=== PATIENT | female | born 1960 | race Caucasian/White ===

== ENCOUNTER 2017-11-04 06:18 | Emergency (ER) ==
[2017-11-04] MEDS ORDERED: LASIX IVP STA ×2 (06:27→06:56)
[2017-11-04 06:35] VITALS: BP 227/82; TEMP 98.8; BMI 44.3
[2017-11-04 06:49] LABS: BASOPHILS # (AUTO) 0.1 K/uL (0-0.2); BASOPHILS % (AUTO) 0.6 % (0.0-3.0); EOSINOPHILS # (AUTO) 0.5 K/ul (0.0-0.7); EOSINOPHILS % (AUTO) 4.6 % (0.0-7.0); HEMATOCRIT 23.2 % (37.0-47.0); HEMOGLOBIN 7.8 g/dl (12.0-16.0); IMMATURE GRANULOCYTE % (AUTO) 0.7 % (0.0-5.0); LYMPHOCYTES # (AUTO) 1.5 K/uL (0.60-3.4); LYMPHOCYTES % (AUTO) 14.9 (10.0-50.0); MEAN CORPUSCULAR HEMOGLOBIN 30.4 pg (27.0-31.0); MEAN CORPUSCULAR HGB CONC 33.6 (31.8-35.4); MEAN CORPUSCULAR VOLUME 90.3 fl (81.0-99.0); MONOCYTES # (AUTO) 0.8 K/uL (0.4-2.0); MONOCYTES % (AUTO) 7.9 (0-10); NEUTROPHILS # (AUTO) 7.1 K/ul (2.0-6.9); NEUTROPHILS % (AUTO) 71.3; PLATELET COUNT 239 10^3/uL (140-440); RED BLOOD COUNT 2.57 10^6/ul (4.20-5.40)
--- NOTE | 2017-11-04 06:51 | ED.PDOC ---
General Stated Complaint: yobani been sob for a few weeks but worse last night Time Seen by Physician: 06:30 Mode of Arrival: Ambulance Information Source: Patient, Family, EMT Exam Limitations: No limitations Nursing and Triage Documentation Reviewed and Agree: Yes <HEATHER ADAMS - Last Filed: 11/04/17 07:04> <DALIA FOSTER - Last Filed: 11/04/17 08:39> ED Provider: Dr. DALIA FOSTER Chief Complaint: Shortness of Air Primary Care Provider: HEATHER SOTOMAYOR Respiratory Complaint Exam - Shortness of Air Complaint/Exam Onset/Duration: several weeks Symptoms Are: Still present Timing: Intermittent Initial Severity: Mild Current Severity: Moderate Character: Reports: Dyspnea at rest, Dyspnea on exertion Aggravating: Reports: Recumbent position Alleviating: Reports: Oxygen Associated Signs and Symptoms: Reports: Calf pain, Calf swelling, Edema, Labored breathing. Denies: Cough, Wheezing, Chest pain with cough, Chest pain, Fever, Chills, Diaphoresis, Nasal congestion, Dizziness, Rapid breathing, Decreased intake History of Healthcare-Acquired Pneumonia: No Pulmonary Embolism Risk Factors: Reports: Bedrest Cardiac Risk Factors: Reports: Elevated lipids, Diabetes, Hypertension Tuberculosis Risk Factors: Reports: Diabetes Home Oxygen Use: No Recent Stress Test: No Recent Echo/LV Function: No Respiratory Distress: Mild Stridor Present: No Tracheal Deviation: No Subcutaneous Emphysema: No Accessory Muscle Use: No Retractions: Not Present Diminished Breath Sounds: Yes Prolonged Expiratory Phase: No Unable to Speak Full Sentences: No Fatigue: Yes Leg Swelling: Yes Bassam's Sign Present: No Grunting Respirations: No Kussmaul Respirations: No Differential Diagnoses: CHF, Pulmonary Edema, Pneumonia, Pulmonary Embolism Quality Indicator For Non-Traumatic Chest Pain/Syncope: EKG Performed <HEATHER ADAMS - Last Filed: 11/04/17 07:04> Review of Systems - Review Of Systems Constitutional: Reports: No symptoms Eyes: Reports: No symptoms Ears, Nose, Mouth, Throat: Reports: No symptoms Respiratory: Reports: Short of air Cardiac: Reports: No symptoms, Edema GI: Reports: No symptoms : Reports: No symptoms Musculoskeletal: Reports: No symptoms Skin: Reports: No symptoms Neurological: Reports: No symptoms Endocrine: Reports: No symptoms Hematologic/Lymphatic: Reports: No symptoms All Other Systems: Reviewed and Negative <HEATHER ADAMS - Last Filed: 11/04/17 07:04> Past Medical History - Past Medical History Previously Healthy: No Endocrine: Reports: DM 2 Cardiovascular: Reports: Hypertension Respiratory: Reports: COPD Hematological: Reports: Anemia Gastrointestinal: Reports: Liver Genitourinary: Reports: CKD Neuro/Psych: Reports: None Musculoskeletal: Reports: Back Pain Cancer: Reports: None Last Menstrual Period: STATES "YEARS AGO" - Surgical History General Surgical History: Reports: Other - Family History Family History: Reports: Unknown - Social History Smoking Status: Current every day smoker, Heavy tobacco smoker Hx Substance Use: No Alcohol Screening: None Lives: With family - Immunizations Tetanus Shot up to Date: Yes <HEATHER ADAMS - Last Filed: 11/04/17 07:04> Physical Exam - Physical Exam Appearance: Ill-appearing Eyes: ROXANNA, EOMI, Conjunctiva clear ENT: Ears normal, Nose normal, Oropharynx normal Neck: Supple Respiratory: Breath sounds diminished Cardiovascular: RRR, Pulses normal, No rub, No murmur GI/: Soft, Nontender, No masses, Bowel sounds normal, No Organomegaly Musculoskeletal: Normal strength, ROM intact, No calf tenderness, Edema Skin: Warm, Dry, Normal color (diabetic ulcers lower extremities) Neurological: Sensation intact, Motor intact, Reflexes intact, Cranial nerves intact, Alert, Oriented Psychiatric: Affect appropriate, Mood appropriate <HEATHER ADAMS - Last Filed: 11/04/17 07:04> Interpretation - Radiology Interpretation Radiology Interpretation By: Radiologist Radiology Results: Negative Exam Interpreted: CXR <DALIA FOSTER - Last Filed: 11/04/17 08:39> Physician Notification - Case Discussed Physician Notified: dr foster Time of Notification: 07:00 <HEATHER ADAMS - Last Filed: 11/04/17 07:04> Critical Care Note - Critical Care Note Total Time (mins): 30 <DALIA FOSTER - Last Filed: 11/04/17 08:39> Course - Course Hematology/Chemistry: 11/04/17 06:44 <HEATHER ADAMS - Last Filed: 11/04/17 07:04> - Course Hematology/Chemistry: 11/04/17 06:44 11/04/17 06:44 <DALIA FOSTER - Last Filed: 11/04/17 08:39> - Course Orders, Labs, Meds: Lab Review 11/04/17 11/04/17 11/04/17 06:25 06:44 06:44 WBC 10.00 RBC 2.57 L Hgb 7.8 L Hct 23.2 L MCV 90.3 MCH 30.4 MCHC 33.6 RDW Coeff of Rodrigo 14.6 Plt Count 239 Immature Gran % (Auto) 0.7 Neut % (Auto) 71.3 Lymph % (Auto) 14.9 [place] % (Auto) 7.9 Eos % (Auto) 4.6 Baso % (Auto) 0.6 Immature Gran # (Auto) 0.1 Neut # 7.1 H Lymph # 1.5 [place] # 0.8 Eos # 0.5 Baso # 0.1 D-Dimer (Manual) Puncture Site Rr O2 Saturation 99.0 ABG pH 7.496 H ABG pCO2 24.5 L ABG pO2 114.0 H ABG HCO3 18.9 L ABG Total CO2 20 L ABG Base Excess -4 L Truong Test + FiO2 % 21.0 Sodium 133 L Potassium 6.6 H* Chloride 107 Carbon Dioxide 15 L Anion Gap 17.6 BUN 62 H* Creatinine 2.26 H Estimated GFR (MDRD) 22.00 BUN/Creatinine Ratio 27.43 Glucose 615 H* Calcium 8.9 Total Bilirubin 0.16 AST 22 ALT 23 Alkaline Phosphatase 267 H Total Creatine Kinase 55 Troponin I 0.0280 B-Natriuretic Peptide Total Protein 6.7 Albumin 2.9 L Globulin 3.8 Albumin/Globulin Ratio 0.76 TSH 4.383 Urine Color Urine Clarity Urine pH Ur Specific [place] Urine Protein Urine Glucose (UA) Urine Ketones Urine Blood Urine Nitrite Urine Bilirubin Urine Urobilinogen Ur Leukocyte Esterase Urine Microscopic RBC Urine Microscopic WBC Ur Squamous Epith Cells Urine Bacteria 11/04/17 11/04/17 11/04/17 06:44 06:44 06:44 WBC RBC Hgb Hct MCV MCH MCHC RDW Coeff of Rodrigo Plt Count Immature Gran % (Auto) Neut % (Auto) Lymph % (Auto) [place] % (Auto) Eos % (Auto) Baso % (Auto) Immature Gran # (Auto) Neut # Lymph # [place] # Eos # Baso # D-Dimer (Manual) 788.93 Puncture Site O2 Saturation ABG pH ABG pCO2 ABG pO2 ABG HCO3 ABG Total CO2 ABG Base Excess Truong Test FiO2 % Sodium Potassium Chloride Carbon Dioxide Anion Gap BUN Creatinine Estimated GFR (MDRD) BUN/Creatinine Ratio Glucose Calcium Total Bilirubin AST ALT Alkaline Phosphatase Total Creatine Kinase Troponin I B-Natriuretic Peptide 84 Total Protein Albumin Globulin Albumin/Globulin Ratio TSH Urine Color Yellow Urine Clarity Clear Urine pH 5.5 Ur Specific [place] 1.010 Urine Protein 2+ Urine Glucose (UA) 2+ Urine Ketones Negative Urine Blood 1+ Urine Nitrite Positive Urine Bilirubin Negative Urine Urobilinogen 0.2 Ur Leukocyte Esterase Trace Urine Microscopic RBC 2-5 Urine Microscopic WBC 10-20 Ur Squamous Epith Cells 5-10 Urine Bacteria 2+ Orders Category Date Time Status ABG DRAW REQUEST Stat CARDIO 11/04/17 06:25 Completed EKG-(ED ONLY) Stat CARDIO 11/04/17 06:25 Completed ORDER H&H 1HR POST TRANSFUSION ONCE CARE 11/04/17 06:56 Active PRBC LEUKOREDUCED ONCE CARE 11/04/17 06:56 Active Box Stapler [ED SCIENTIFIC RESEARCH MANAGER APPLIED] .ONCE EMERGENCY 11/04/17 06:28 Active IV [ED IV/MEDIPORT/POWERPORT] .ONCE EMERGENCY 11/04/17 06:26 Active ABG Stat LAB 11/04/17 06:25 Completed B-TYPE NATRIURETIC PEPTIDE Stat LAB 11/04/17 06:44 Completed BLOOD PRODUCT: PACKED RED BLOOD CELLS [PACKED CELLS] LAB 11/04/17 07:15 Received Stat CBC W/ AUTO DIFF Stat LAB 11/04/17 06:44 Completed COMPREHENSIVE METABOLIC PANEL Stat LAB 11/04/17 06:44 Completed CREATINE KINASE Stat LAB 11/04/17 06:44 Completed D-DIMER Stat LAB 11/04/17 06:44 Completed THYROID STIMULATING HORMONE Stat LAB 11/04/17 06:44 Completed TROPONIN I Stat LAB 11/04/17 06:44 Completed TYPE AND SCREEN Stat LAB 11/04/17 07:15 Received UA [URINALYSIS C & S IF INDICATED] Stat LAB 11/04/17 06:44 Completed URINE CULTURE Routine LAB 11/04/17 06:30 Received 0.9 % Sodium Chloride [Saline Flush] MEDS 11/04/17 06:26 Active 1 syr IVF PRN PRN Ceftriaxone Sodium [Rocephin] 1 gm MEDS 11/04/17 08:36 Active 0.9 % Sodium Chloride [Sodium Chloride] 50 ml IV ONCE Furosemide [Lasix] MEDS 11/04/17 06:56 Discontinued 20 mg IVP ONCE STA Furosemide [Lasix] MEDS 11/04/17 06:27 Discontinued 40 mg IVP ONCE STA Morphine Sulfate [Morphine 2 mg/ml Syringe] MEDS 11/04/17 08:11 Discontinued 2 mg IVP ONCE STA Ondansetron HCl/Pf [Zofran 4 mg/2 ml] MEDS 11/04/17 08:11 Discontinued 4 mg IVP ONCE STA CT CHEST W/O CONTRAST Stat RADS 11/04/17 06:27 Stop Req CXR [CHEST, 1V AP ONLY] Stat RADS 11/04/17 06:35 Completed Medications Generic Name Dose Route Start Last Admin Trade Name Freq PRN Reason Stop Dose Admin Ceftriaxone Sodium 1 gm/ 50 mls @ 75 mls/hr 11/04/17 08:36 Sodium Chloride IV 11/04/17 09:15 ONCE STA Sodium Chloride 1 syr 11/04/17 06:26 11/04/17 08:24 Saline Flush IVF 1 syr PRN PRN Administration To flush IV Discontinued Medications Generic Name Dose Route Start Last Admin Trade Name Freq PRN Reason Stop Dose Admin Furosemide 40 mg 11/04/17 06:27 11/04/17 08:31 Lasix IVP 11/04/17 06:28 Not Given ONCE STA Furosemide 20 mg 11/04/17 06:56 11/04/17 08:31 Lasix IVP 11/04/17 06:57 Not Given ONCE STA Morphine Sulfate 2 mg 11/04/17 08:11 11/04/17 08:22 Morphine 2 Mg/Ml Syringe IVP 11/04/17 08:12 2 mg ONCE STA Administration Ondansetron HCl 4 mg 11/04/17 08:11 11/04/17 08:21 Zofran 4 Mg/2 Ml IVP 11/04/17 08:12 4 mg ONCE STA Administration Vital Signs: Temp Pulse Resp BP Pulse Ox 11/04/17 06:20 98.8 F 77 18 227/82 H 96 Departure <HEATHER ADAMS - Last Filed: 11/04/17 07:04> - Departure Time of Disposition: 08:39 Pt referred to PMD for follow-up: Yes Transfer Form Completed: Yes Disposition Discussed With: Patient, Family <BEJGUM,DALIA - Last Filed: 11/04/17 08:39> - Departure Disposition: TSF SHORT-TRM HOSP Discharge Problem: Hyperkalemia Acute on chronic renal failure Qualifiers: Acute renal failure type: with acute tubular necrosis Chronic kidney disease stage: stage 3 (moderate) Qualified Code(s): N17.0 - Acute kidney failure with tubular necrosis; N18.3 - Chronic kidney disease, stage 3 (moderate); N18.3 - Chronic kidney disease, stage 3 (moderate) Instructions: Acute Kidney Injury (GEN) Condition: Good Allergies/Adverse Reactions: Allergies doxycycline Adverse Reaction (Verified 09/09/16 20:20) Home Medications: Ambulatory Orders Albuterol Sulfate [Proair Hfa] 2 puff IH Q6H 04/06/16 Carvedilol 3.125 mg PO BID 09/09/16 Furosemide [Lasix] 40 mg PO BID 09/09/16 Insulin Aspart [Novolog] 1 unit SQ PRN PRN 09/09/16 Insulin Detemir [Levemir] 25 units SQ QPM 09/09/16 Levothyroxine Sodium [Levo-T] 75 mg PO DAILY 09/09/16 Lisinopril 2.5 mg PO BID 09/09/16 Pantoprazole Sodium 40 mg PO BID 09/09/16 Spironolactone 25 mg PO DAILY 09/09/16
[2017-11-04 06:53] LABS: ABG PCO2 24.5 mmHg (35-45); ABG PH 7.496 (7.35-7.45)
[2017-11-04 06:54] LABS: ABG BASE EXCESS -4 (-2.0-2.0); ABG HCO3 18.9 (22.0-26.0); ABG TCO2 20 (22.0-28.0)
--- NOTE | 2017-11-04 06:58 | DI ---
Exam: Single x-ray of the chest. Comparison: 05/26/2016. Reason for exam: Dyspnea. FINDINGS: No pneumothorax, pleural effusion, or focal consolidation. The cardiac silhouette is unch anged. Image interpretation is limited by low lung volumes. The imaged osseous structures appear gr ossly unremarkable without acute fracture. Impression: No acute cardiopulmonary process.
[2017-11-04 07:01] LABS: BILIRUBIN,URINE Negative (NEGATIVE); KETONES,URINE Negative (NEGATIVE); LEUKOCYTE ESTERASE ,URINE Trace (NEGATIVE); NITRITE,URINE Positive (NEGATIVE); PH,URINE 5.5 (5-9); PROTEIN,URINE 2+ (NEGATIVE); URINE, BLOOD 1+ (NEGATIVE)
[2017-11-04 07:43] LABS: ADD URINE MICROSCOPIC YES
[2017-11-04 07:44] LABS: BACTERIA,URINE 2+ (NOT PRESENT)
[2017-11-04 07:48] LABS: TROPONIN I 0.028 ng/ml (0.0000-0.4000)
[2017-11-04 07:49] LABS: CALCIUM 8.9 mg/dL (8.2-10.2)
[2017-11-04] MEDS ORDERED: MORPHINE 2 MG/ML SYRINGE IVP STA (08:11)
[2017-11-04] MEDS ORDERED: ZOFRAN 4 MG/2 ML IVP STA (08:11)
[2017-11-04 08:20] LABS: ALBUMIN 2.9 g/dL (3.4-5.0); ALBUMIN/GLOBULIN RATIO 0.76; ANION GAP 17.6; BILIRUBIN,TOTAL 0.16 mg/dL (0.00-1.20); BUN/CREATININE RATIO 27.43; CREATININE 2.26 mg/dL (0.60-1.30); TOTAL PROTEIN 6.7 g/dL (6.4-8.2)
[2017-11-04 08:30] LABS: POTASSIUM 6.6 mmol/L (3.5-5.10)
[2017-11-04] MEDS ORDERED: ROCEPHIN 1 GM in SODIUM CHLORIDE 50 ML IV STA (08:36)
[2017-11-04] MEDS ORDERED: HUMALOG SUBCUT STA (08:40)
[2017-11-04] MEDS ORDERED: KAYEXALATE SUSP PO STA (09:09)
[2017-11-04] MEDS ORDERED: ROCEPHIN ONE (09:18)
== END 2017-11-04 10:50 | disposition short-term general hospital (02) ==
LOC: ED 06:18
DX: E87.5 Hyperkalemia (principal); N17.0 Acute kidney failure with tubular necrosis; N18.3 Chronic kidney disease, stage 3 (moderate); R06.02 Shortness of breath; R60.0 Localized edema; E78.5 Hyperlipidemia, unspecified; I10 Essential (primary) hypertension; E11.9 Type 2 diabetes mellitus without complications; E11.622 Type 2 diabetes mellitus with other skin ulcer; F17.210 Nicotine dependence, cigarettes, uncomplicated; Z79.899 Other long term (current) drug therapy; Z79.4 Long term (current) use of insulin
CPT/HCPCS: 36415; 80053; 81001; 82550; 82803; 83880; 84443; 84484; 85025; 85379; 86850; 86900; 86922; 87086; 93005; 93010; 96365; 96372; 96375; 99285